=== PATIENT | female | born 1945 | race Caucasian/White ===

== ENCOUNTER 2025-02-20 08:17 | Outpatient (OUT) | payer OTHER, SELFPAY ==
--- NOTE | 2025-02-20 08:30 | ECG_ITS ---
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 Measurements Intervals [place] Rate: 74 P: 66 OK: 182 QRS: 68 QRSD: 98 T: 78 QT: 383 QTc: 425 Interpretive Statements SINUS RHYTHM POSSIBLE LEFT ATRIAL ENLARGEMENT [-0.1mV P WAVE IN V1/V2] NONSPECIFIC T-WAVE ABNORMALITY Abnormal ECG No previous ECG available for comparison Electronically Signed On 02-20-2025 16:07:37 EDT by KEVIN KING M.D.
== END 2025-02-20 08:18 | disposition home or self-care (01) ==
LOC: CARD 08:21
PROVIDERS: PCP Family Medicine; Visit Provider Internal Medicine
DX: C50.919 Malignant neoplasm of unspecified site of unspecified female breast (principal)
CPT/HCPCS: 93005